=== PATIENT | female | born 1975 | race Caucasian/White ===

== ENCOUNTER → 2018-05-10 09:28 | Outpatient (CLI) | payer OTHER, SELFPAY | PROVIDERS: PCP Family Medicine; Visit Provider Family Medicine | DX: E11.9 Type 2 diabetes mellitus without complications (principal) | CPT/HCPCS: 36415; 83036 ==

== ENCOUNTER → 2018-09-13 09:23 | Outpatient (CLI) | payer OTHER, SELFPAY ==
[2018-09-13 09:57] LABS: Hemoglobin A1C% w Est Avg Glu 6.8 % (4.0-6.0)
[2018-09-13 09:58] LABS: Urine Amphetamines Negative (Negative); Urine Barbiturates Negative (Negative); Urine Benzodiazepines Negative (Negative); Urine Cocaine Negative (Negative); Urine MDMA Negative (Negative); Urine Methadone Negative (Negative); Urine Methamphetamines Negative (Negative); Urine Morphine/Opi cutoff 2000 Negative (Negative); Urine Oxycodone Negative (Negative); Urine Phencyclidine Negative (Negative); Urine Tetrahydrocannabinol Negative (Negative); Urine Tricyclic Antidepressant Positive (Negative)
[2018-09-13 10:14] LABS: BUN Creatinine Ratio 25.6 (6-22); Blood Urea Nitrogen 23 mg/dL (7-17); Calcium 8.9 mg/dL (8.4-10.2); Carbon Dioxide 27 mmol/L (22-32); Chloride 101 mmol/L (98-107); Estimated Glomerular Filt Rate > 60.0 mL/min (>60); Glucose 118 mg/dL (70-100); HEMOLYSIS 23 (0-50); Potassium 4.3 mmol/L (3.4-5.1); Sodium 137 mmol/L (137-145)
== END ==
PROVIDERS: PCP Family Medicine; Visit Provider Family Medicine
DX: E11.9 Type 2 diabetes mellitus without complications (principal); I10 Essential (primary) hypertension; Z02.89 Encounter for other administrative examinations
CPT/HCPCS: 36415; 80048; 80305; 83036

== ENCOUNTER → 2019-04-01 08:26 | Outpatient (CLI) | payer OTHER, SELFPAY ==
[2019-04-01 10:08] LABS: Hemoglobin A1C% w Est Avg Glu 6.8 % (4.0-6.0)
[2019-04-01 10:31] LABS: Alanine Aminotransferase 24 IU/L (9-52); Albumin Globulin Ratio 1.3 (1.0-2.8); Alkaline Phosphatase 118 U/L (38-126); Aspartate Aminotransferase 34 IU/L (14-36); BUN Creatinine Ratio 41.7 (6-22); Bilirubin Total 0.5 mg/dL (0.2-1.3); Blood Urea Nitrogen 25 mg/dL (7-17); Calcium 9.2 mg/dL (8.4-10.2); Carbon Dioxide 29 mmol/L (22-32); Chloride 98 mmol/L (98-107); Cholesterol 221 mg/dL (140-199); Estimated Glomerular Filt Rate > 60.0 mL/min (>60); Globulin 3.2 g/dL (1.7-4.1); Glucose 124 mg/dL (70-100); HDL Cholesterol 46 mg/dL (40-60); HEMOLYSIS < 15 (0-50); LDL Cholesterol Calculated 133 mg/dL (<100); Potassium 4.5 mmol/L (3.4-5.1); Sodium 137 mmol/L (137-145); Total Protein 7.2 g/dL (6.3-8.2); Triglycerides 212 mg/dL (35-150)
[2019-04-01 10:35] LABS: Creatinine Urine Random 179.9 mg/dL
[2019-04-01 10:42] LABS: Microalbumi Creatinin Ratio Ur 3.3 ug/mg CR (<30); Microalbumin Urine Random < 0.6 mg/dL (0-1.6)
== END ==
PROVIDERS: PCP Family Medicine; Visit Provider Family Medicine
DX: E11.9 Type 2 diabetes mellitus without complications (principal); E78.5 Hyperlipidemia, unspecified; G43.909 Migraine, unspecified, not intractable, without status migrainosus; I10 Essential (primary) hypertension; M15.9 Polyosteoarthritis, unspecified
CPT/HCPCS: 36415; 80053; 80061; 82043; 82570; 83036

== ENCOUNTER → 2021-02-01 16:00 | Outpatient (CLI) | payer OTHER, SELFPAY ==
[2021-02-01 16:57] LABS: Hemoglobin A1C% w Est Avg Glu 7.7 % (4.0-6.0)
[2021-02-01 16:59] LABS: Alanine Aminotransferase 31 IU/L (<35); Albumin Globulin Ratio 1.2 (1.0-2.8); Alkaline Phosphatase 135 U/L (38-126); Aspartate Aminotransferase 37 IU/L (14-36); BUN Creatinine Ratio 31.2 (6-22); Bilirubin Total 0.3 mg/dL (0.2-1.3); Blood Urea Nitrogen 24 mg/dL (7-17); Calcium 9.4 mg/dL (8.4-10.2); Carbon Dioxide 24 mmol/L (22-32); Chloride 101 mmol/L (98-107); Estimated Glomerular Filt Rate > 60.0 mL/min (>60); Globulin 3.3 g/dL (1.7-4.1); Glucose 202 mg/dL (70-100); HEMOLYSIS < 15 (0-50); Magnesium 1.9 mg/dL (1.6-2.3); Potassium 4.6 mmol/L (3.4-5.1); Sodium 135 mmol/L (137-145); Total Protein 7.3 g/dL (6.3-8.2)
== END ==
PROVIDERS: PCP Family Medicine; Referring Provider Family Medicine; Visit Provider Family Medicine
DX: D47.3 Essential (hemorrhagic) thrombocythemia (principal); E11.9 Type 2 diabetes mellitus without complications; I10 Essential (primary) hypertension; I42.7 Cardiomyopathy due to drug and external agent; T45.1X5A Adverse effect of antineoplastic and immunosuppressive drugs, initial encounter; Z90.5 Acquired absence of kidney
CPT/HCPCS: 36415; 80053; 83036; 83735

== ENCOUNTER → 2021-11-23 08:04 | Outpatient (CLI) | payer OTHER, SELFPAY ==
--- NOTE | 2021-11-23 08:05 | DI.US.S_ITS ---
PROCEDURE: US PELVIC COMPLETE INDICATIONS: LOWER ABDOMINAL/PELVIC PAIN TECHNIQUE: Real-time scanning was performed of the pelvic organs, with image documentation. Additional endovaginal scanning was necessary due to incomplete visualization of the adnexal and endometrial structures by transabdominal scanning. COMPARISON: [facility], , US PELVIC/TRANSVAGINAL, 07/17/2017, 17:24. [facility], , PELVIC COMPLETE, 12/18/2016, 10:51. FINDINGS: Uterus: Uterus is anteverted and normal in size at 8.5 x 5.4 x 4.8 cm. The myometrium is homogeneous. The endometrium measures 9 mm combined thickness. Ovaries: The right ovary measures 3.6 x 3.6 x 3.5 cm and demonstrates an anechoic cyst that measures up to 3.1 cm. The left ovary measures 3.9 x 2.5 x 2.3 cm and demonstrates an anechoic cyst that measures up to 2.5 cm, which is considered to be within physiologic limits. The ovaries otherwise have a normal sonographic appearance. No adnexal masses are seen. Normal appearing arterial waveforms are confirmed to each ovary. Other: No pathologic free abdominal or pelvic fluid. IMPRESSION: No imaging explanation is found for this patient's presenting symptoms. Negative for ovarian torsion. Bilateral simple appearing renal cysts are seen, which measure up to 3.1 cm on the right. In a patient of this age, this is almost certainly benign. If it would be clinically appropriate, a followup pelvic ultrasound could be considered in 6 weeks to assure resolution/ improvement. We strive to produce accurate, complete, and clear reports of imaging services. To assist us in improving patient care, this report was composed using standard report templates and voice recognition software. Therefore, it may contain abnormal punctuation, insertions and/or omissions. Occasional wrong-word or sound-alike substitutions may occur. Though we review the report and make efforts to correct it, we do recommend that the report be read carefully in proper context to recognize any text inaccuracies. Dictated by: Wild Radford M.D. on 11/24/2021 at 14:00 Approved by: Wild Radford M.D. on 11/24/2021 at 14:02
== END ==
PROVIDERS: PCP Family Medicine; Referring Provider Family Medicine; Visit Provider Family Medicine
DX: R10.30 Lower abdominal pain, unspecified (principal); N28.1 Cyst of kidney, acquired; R10.2 Pelvic and perineal pain
CPT/HCPCS: 76856

== ENCOUNTER → 2022-05-22 12:46 | Outpatient (CLI) | payer OTHER, SELFPAY ==
[2022-05-24 12:09] LABS: Candida species Negative (Negative); Gardnerella vaginalis Negative (Negative); Trichomoas vaginalis Negative (Negative)
== END ==
PROVIDERS: PCP Pediatrics; Visit Provider Physician Assistant Medical
DX: N89.8 Other specified noninflammatory disorders of vagina (principal); N90.89 Other specified noninflammatory disorders of vulva and perineum
CPT/HCPCS: 87070; 87205; 87480; 87510; 87660